=== PATIENT | male | born 1965 | race Caucasian/White ===

== ENCOUNTER 2017-01-24 18:44 | Emergency (ER) | payer OTHER ==
[~2017-01-24] VITALS: Ht 175.3 cm; Wt 85.0 kg
[2017-01-24 19:24] LABS: HEMATOCRIT 46.8 % (39.2-51.8); HEMOGLOBIN 15.6 g/dL (13.7-18.0); WHITE BLOOD COUNT 8.6 x10^3/uL (3.4-10)
[2017-01-24] MEDS ORDERED: ASPIRIN 81 MG TABLET CHEW PO ONE (19:30)
[2017-01-24] MEDS ORDERED: SODIUM CHLORIDE FLUSH 10ML SYR IVF ONE (19:30)
[2017-01-24] MEDS ORDERED: SODIUM CHLORIDE 0.9% 1,000ML IVBOLUS ONE ×2 (19:30→20:00)
[2017-01-24 19:38] LABS: BLOOD UREA NITROGEN 14 mg/dL (7-18)
[2017-01-24 19:39] LABS: ASPARTATE AMINO TRANSFERASE 14 U/L (15-37)
[2017-01-24 19:43] LABS: IS PT STATUS REG ER OR PRE ER? YES
[2017-01-24] MEDS ORDERED: KETOROLAC 30 MG/1 ML IVPush ONE (20:00)
[2017-01-24 20:07] LABS: RAPID INFLUENZA A Negative (Negative); RAPID INFLUENZA B Negative (Negative)
[2017-01-24 20:09] VITALS: BP 104/58
== END 2017-01-24 21:17 | disposition home or self-care (01) ==
LOC: ED 20:40
DX: J20.8 Acute bronchitis due to other specified organisms (principal); J00 Acute nasopharyngitis [common cold]
CPT/HCPCS: 36415; 71020; 80053; 84484; 85025; 87400; 93005; 96361; 96374; 99285; J1885; J7030